=== PATIENT | male | born 1980 | race Caucasian/White ===

== ENCOUNTER 2017-02-26 13:37 | Emergency (ER) | payer SELFPAY ==
[2017-02-26 13:45] VITALS: BMI 27.6
[2017-02-26] MEDS ORDERED: IBUPROFEN 400 MG TABLET (FP) PO ONE ×2 (14:15→14:27)
[2017-02-26] MEDS ORDERED: LIDOCAINE VISCOUS 2% ORAL/TOP 100 ML BOTTLE MM ONE (14:16)
[2017-02-26] MEDS ORDERED: LIDOCAINE VISCOUS 2% ORAL/TOP 20 ML UNIT-DOSE CUP ONE (14:17)
--- NOTE | 2017-02-26 14:22 | PDOC ---
History of Present Illness - General Chief Complaint: Hemorrhoids Stated Complaint: BACK PAIN Time Seen by Provider: 02/26/17 14:07 History Source: Patient - History of Present Illness Timing/Duration: reports: constant Quality: reports: severe Past History - Past Medical History Allergies/Adverse Reactions: Allergies Allergy/AdvReac Type Severity Reaction Status Date / Time No Known Allergies Allergy Verified 02/26/17 13:41 Home Medications: Ambulatory Orders Clindamycin [Cleocin -] 300 mg PO Q6HPO #28 capsule 02/26/17 Docusate Sodium [Colace] 100 mg PO DAILY #30 capsule 02/26/17 Hydrocortisone 2.5% Topical Cr [Anusol 2.5% Hc Cream -] 1 applic RC ASDIR #1 tube 02/26/17 Ibuprofen [Motrin -] 600 mg PO QID #28 tablet 02/26/17 COPD: No - Surgical History Appendectomy: Yes - Suicide/Smoking/Psychosocial Hx Smoking History: Current every day smoker Number of Cigarettes Smoked Daily: 2 Information on smoking cessation initiated: No Review of Systems - Review of Systems Constitutional: No: Chills, Fever *Physical Exam - Vital Signs Last Vital Signs Temp Pulse Resp BP Pulse Ox 99.4 F 88 18 152/103 98 02/26/17 13:43 02/26/17 13:43 02/26/17 13:43 02/26/17 13:43 02/26/17 13:43 - Physical Exam General Appearance: Yes: Appropriately Dressed, Moderate Distress HEENT: positive: Normal Voice Neck: positive: Supple Gastrointestinal/Abdominal: positive: Soft. negative: Tender Rectal Exam: positive: other (<0.5cm induration located to superuor rectum w/ sig ttp, no fluctuance or surrounding erythema, concernign for possible evry early [id number] absecss vs hemorrhoid, unable to tolerate internal exam) Medical Decision Making - Medical Decision Making 02/26/17 14:16 36-year-old male, denies any past medical history, has been straining to defecate for the past week and 2 days ago noticed painful swelling to rectal area. No bright red blood per rectum, fever or chills. No history of abscess or hemorrhoids. Patient appears uncomfortable in ED but stable with less than half a centimeter area of induration without fluctuance to superior aspect of rectum, concerning for possible very early abner-rectal abscess versus hemorrhoid. Case discussed with Dr. Doll who also evaluated patient and agrees with discharging with pain control, antibiotics, stool softeners, sitz bath and have patient return for wound check in 2 days. 02/26/17 14:53 *DC/Admit/Observation/Transfer Diagnosis at time of Disposition: Rectal pain - Discharge Dispostion Disposition: HOME Condition at time of disposition: Improved - Prescriptions Prescriptions: Clindamycin [Cleocin -] 300 mg PO Q6HPO #28 capsule Docusate Sodium [Colace] 100 mg PO DAILY #30 capsule Hydrocortisone 2.5% Topical Cr [Anusol 2.5% Hc Cream -] 1 applic RC ASDIR #1 tube Ibuprofen [Motrin -] 600 mg PO QID #28 tablet - Referrals - Patient Instructions Additional Instructions: Based on your exam, you possibly have an early abner-rectal abscess or hemorrhoid. Please perform sitz baths as directed and take medications as prescribed. Drink plenty of water and increase fiber in your diet. Return to ER in 2 days for wound check. If pain worsens at home, you notice redness to site or develop fever, return immediately - Post Discharge Activity
[2017-02-26 14:33] VITALS: BP 131/94; PULSE 85; TEMP 97.2
== END 2017-02-26 14:56 | disposition home or self-care (01) ==
LOC: JERFT 13:37
DX: K62.89 Other specified diseases of anus and rectum (principal)
CPT/HCPCS: 99281-25